=== PATIENT | male | born 1965 | race African-American/Black ===

== ENCOUNTER 2021-06-22 02:02 | Observation (INO) ==
[2021-06-22] MEDS ORDERED: ASPIRIN 325 MG TABLET PO STA (02:24)
[2021-06-22] MEDS ORDERED: NITROGLYCERIN 2% OINT 1 INCH/GM PACK TOP STA (02:24)
[2021-06-22] MEDS ORDERED: ALUM/MAG/SIMETH/LIDO VISC 1:1 30 ML BOTTLE PO STA (02:24)
[2021-06-22] MEDS ORDERED: PANTOPRAZOLE 40 MG TABLET PO STA (02:24)
[2021-06-22] MEDS ORDERED: LABETALOL 20 MG/4 ML SYRINGE IV STA (02:24)
[2021-06-22] MEDS ORDERED: ONDANSETRON 4 MG/2 ML VIAL IV STA (02:24)
[2021-06-22] MEDS ORDERED: MORPHINE 2 MG/1 ML SYRINGE IV STA (02:24)
[2021-06-22 02:53] LABS: Basophils % 0.3 % (0.0-0.8); Eosinophils # 0.1 10*3/uL (0.0-0.87); Eosinophils % 1.5 % (0.00-10.9); Hematocrit 43.1 VOL% (42.0-52.0); Hemoglobin 14.3 GM/DL (14.0-18.0); Immature Granulocytes % 0.3 %; Immature Granulocytes Absolute 0.02 #; Lymphocytes # 2.8 10*3/uL (1.4-4.0); Lymphocytes % 38.5 % (21.2-54.2); Mean Corpuscular HGB Conc 33.2 GM/DL (32-36); Mean Corpuscular Volume 90.2 FL (87-102); Mean Platelet Volume 10.3 FL (9.6-12.0); Neutrophils % 52.4 % (38.7-73.9); Platelet Count 194 T/CUMM (130-400); Red Blood Count 4.78 MC/CUMM (3.8-5.5); Red Cell Distribution Width 13.1 % (9.3-17.3); White Blood Count 7.3 T/CUMM (4-12)
[2021-06-22 03:21] LABS: Albumin 3.8 G/DL (3.4-5.0); Bilirubin,Total 0.7 MG/DL (0.20-1.00); Calcium 9.3 MG/DL (8.5-10.1)
[2021-06-22 03:40] LABS: Osmolality,Calculated 287.4 MOS/KG (273-304); Potassium 3.6 MMOL/L (3.5-5.1)
[2021-06-22] MEDS ORDERED: hydrALAZINE 20 MG/1 ML VIAL IV STA (03:51)
[2021-06-22] MEDS ORDERED: ENOXAPARIN 120 MG/0.8 ML SYRINGE SUBCUT STA (03:53)
[2021-06-22] MEDS ORDERED: PROMETHAZINE 25 MG/1 ML VIAL IV PRN (04:17)
[2021-06-22] MEDS ORDERED: GLUCAGON 1 MG VIAL IM PRN (04:17)
[2021-06-22] MEDS ORDERED: DEXTROSE 10% 250 ML BAG IV PRN (04:17)
[2021-06-22] MEDS ORDERED: hydrALAZINE 20 MG/1 ML VIAL IV PRN (04:17)
[2021-06-22] MEDS ORDERED: ACETAMINOPHEN 325 MG TABLET PO PRN (04:17)
[2021-06-22] MEDS ORDERED: ONDANSETRON 4 MG/2 ML VIAL IV PRN (04:17)
[2021-06-22] MEDS ORDERED: MORPHINE 2 MG/1 ML SYRINGE IV PRN (04:17)
[2021-06-22 04:49] LABS: Risk Ratio 5.45; Thyroid Stimulating Hormone 3.2 uIU/ml (0.358-3.74); VLDL Cholesterol 47.6 MG/DL
[2021-06-22] MEDS: INSULIN LISPRO 100 UNIT/ML SUBCUT SCH ×2 (08:00→12:34)
[2021-06-22] MEDS ORDERED: LISINOPRIL/HCTZ 20-25 MG TABLET PO SCH (09:00)
[2021-06-22] MEDS ORDERED: FENOFIBRATE 48 MG TABLET PO SCH (09:00)
[2021-06-22] MEDS ORDERED: carvediloL 3.125 MG TABLET PO SCH (09:30)
[2021-06-22 11:16] VITALS: BP 122/75
[2021-06-22] MEDS ORDERED: INSULIN GLARGINE 100 UNIT/ML SUBCUT SCH (21:00)
[2021-06-22] MEDS ORDERED: PANTOPRAZOLE 40 MG TABLET PO SCH (21:00)
[2021-06-22] MEDS ORDERED: ATORVASTATIN 40 MG TABLET PO SCH (21:00)
[2021-06-23] MEDS ORDERED: ASPIRIN EC 325 MG TABLET PO SCH (09:00)
[2021-06-23] MEDS ORDERED: PARoxetine 20 MG TABLET PO SCH (09:00)
[2021-06-23] MEDS ORDERED: ASPIRIN EC 81 MG TABLET PO SCH (09:00)
[2021-06-23] MEDS ORDERED: PANTOPRAZOLE 40 MG TABLET PO SCH (09:00)
== END 2021-06-22 13:02 | disposition home or self-care (01) ==
LOC: N.ED 02:02 → N.EDINP 02:02
PROVIDERS: ADMIT Internal Medicine; ATTEND Internal Medicine